=== PATIENT | female | born 1980 | race Native Hawaiian/Other Pacific Islander ===

== ENCOUNTER 2021-03-31 22:09 | Emergency (ER) | payer OTHER | END 2021-03-31 22:46 | disposition home or self-care (01) | LOC: ED 22:09 | DX: Z53.21 Procedure and treatment not carried out due to patient leaving prior to being seen by health care provider (principal); Z91.81 History of falling | CPT/HCPCS: 99281 ==

== ENCOUNTER 2021-11-18 02:06 | Emergency (ER) | payer OTHER ==
[~2021-11-18] VITALS: Ht 162.6 cm; Wt 99.8 kg
[2021-11-18 05:07] VITALS: BP 124/82; TEMP 98.1
== END 2021-11-18 05:15 | disposition home or self-care (01) ==
LOC: ED 02:06
DX: K04.7 Periapical abscess without sinus (principal); K08.89 Other specified disorders of teeth and supporting structures; K12.2 Cellulitis and abscess of mouth; F17.210 Nicotine dependence, cigarettes, uncomplicated
CPT/HCPCS: 96372; 99283; J0696; J1885